=== PATIENT | male | born 1995 | race Caucasian/White ===

== ENCOUNTER 2016-09-24 05:20 | Emergency (ER) | payer SELFPAY ==
[~2016-09-24] VITALS: Ht 188 cm; Wt 77.0 kg
[2016-09-24 05:23] VITALS: BP 117/83; PULSE 82; RESP 14; TEMP 97.8; O2SAT 100
--- NOTE | 2016-09-24 05:47 | PD ---
HPI . Anxiety Chief Complaint: Medical Clearance Time Seen by Provider: 05:42 Travel History International Travel<30 days: No Contact w/Intl Traveler<30days: No Traveled to known affect area: No History of Present Illness HPI Patient presents by EVAC chief complaint of anxiety. He states that he's been drinking a lot tonight. Patient reports that anxiety is an ongoing issue with him. It was exacerbated tonight when he was drinking. He reports that his anxiety tonight is severe. PFS Social History Tobacco Use: No Allergies-Medications (Allergen,Severity, Reaction): Coded Allergies: No Known Allergies (Unverified , 09/24/16) Review of Systems Except as stated in HPI: all other systems reviewed are Neg Psychiatric: Positive: Anxiety Physical Exam Narrative GENERAL: Awake and alert and in no acute distress. SKIN: Warm and dry. HEAD: Atraumatic. Normocephalic. EYES: Pupils equal and round. Pupils are equally round and reactive to light. NECK: Trachea midline. Neck is supple. CARDIOVASCULAR: Regular rate and rhythm. Heart sounds are normal. RESPIRATORY: No accessory muscle use. Lungs are clear with full air movement throughout. MUSCULOSKELETAL: No obvious deformities. No edema. NEUROLOGICAL: Awake and alert. No obvious cranial nerve deficits. Motor grossly within normal limits. Normal speech. PSYCHIATRIC: Appropriate mood and affect; insight and judgment normal. He does not appear anxious. Data Data Last Documented VS Vital Signs Date Time Temp Pulse Resp B/P Pulse Ox O2 Delivery O2 Flow Rate FiO2 09/24/16 05:23 97.8 82 14 117/83 100 Room Air MDM Medical Decision Making Medical Screen Exam Complete: Yes Emergency Medical Condition: Yes Differential Diagnosis Differential diagnosis includes alcohol intoxication, substance abuse, anxiety Narrative Course Patient presents to us via EVAC stating that he is anxious. He also states that he's been drinking a lot tonight. He is not tremulous, tachycardic, tachypneic. He does not appear anxious. I have not ordered any tests or medications. He will be allowed to sleep it off. Diagnosis Primary Impression: Acute alcohol intoxication Qualified Code: F10.120 - Acute alcohol intoxication, uncomplicated Patient Instructions: Alcohol Intoxication (DC), General Instructions Additional Instructions: See your primary care provider or a psychiatrist if you have ongoing issues with anxiety. Disposition: DISCHARGE HOME Condition: Stable Rosa Gerber MD Sep 24, 2016 05:47
[2016-09-24 09:33] VITALS: BP 127/72; TEMP 98.7
== END 2016-09-24 09:34 | disposition home or self-care (01) ==
LOC: NEPE 05:20
DX: F10.129 Alcohol abuse with intoxication, unspecified (principal)
CPT/HCPCS: 99283